=== PATIENT | male | born 1940 | race Caucasian/White ===

== ENCOUNTER 2020-11-04 22:54 | Emergency (ER) | payer OTHER, SELFPAY ==
[2020-11-04 22:55] VITALS: BP 114/56; PULSE 67; RESP 22; TEMP 36.4; O2SAT 96; BMI 27.6
--- NOTE | 2020-11-04 23:05 | RAD_ITS ---
STUDY: X-RAY CHEST REASON FOR EXAM: Male, 80 years old. cough TECHNIQUE: Single AP portable view of the chest. COMPARISON: None. FINDINGS: The lungs are clear and expanded. There is no demonstrated pleural abnormality. Normal size heart. Normal mediastinum and amauri. Normal visualized pulmonary arteries. Normal visualized aortic arch and descending thoracic aorta. Normal visualized thoracic spine. Normal visualized ribs, clavicles, and shoulders. There is no demonstrated abnormality of the visualized soft tissue structures of the upper abdomen. Moderate hiatal hernia. Calcified left upper lobe granuloma RAD/Chest 1 View (Portable) IMPRESSION: Normal x-ray examination of the chest. Electronically Signed: Geovanny Ann DO at 23:29 EDT Tel , Service support ,
--- NOTE | 2020-11-04 23:05 | EKG12_ITS ---
Test Reason : DYSRHYTHMIA Blood Pressure : / mmHG Vent. Rate : 069 BPM Atrial Rate : 069 BPM P-R Int : 222 ms QRS Dur : 086 ms QT Int : 406 ms P-R-T Axes : 019 009 102 degrees QTc Int : 435 ms Sinus rhythm with 1st degree A-V block with frequent Premature ventricular complexes Low voltage QRS Septal infarct , age undetermined Abnormal ECG Confirmed by RONY LANDEROS, NORMA ([id number]), commissioning editor GORDON MANSFIELD ([id number]) on 11/08/2020 10:05:37 AM Referred By: FAISAL Confirmed By:NORMA URIBE MD
--- NOTE | 2020-11-04 23:06 | EDS_ITS ---
HPI History of Present Illness Chief Complaint: Shortness of Breath Informant: patient and family Narrative Narrative: 80-year-old male presents the emergency department with cough and shortness of breath. Patient states he developed a cough last week and over the past couple days has had increased shortness of breath. Today he was unable to lie flat in his afternoon nap and at bedtime. He denies any fevers. He notes the sputum is yellow. He has a history of coronary artery disease having had a stent in the past about 20 years ago. He does not get his care here at the hospital. He states that he has not been hospitalized since his heart attack. [facility] Medical History (Updated 11/05/20 @ 00:[address] Marcelo Alves DO) Coronary artery disease Heart failure Home Medications amlodipine [Norvasc] 5 mg PO DAILY 11/04/20 [History Last Taken Unknown] aspirin 325 mg PO DAILY 11/04/20 [History Last Taken Unknown] atenolol 25 mg PO DAILY 11/04/20 [History Last Taken Unknown] isosorbide mononitrate 60 mg PO DAILY 11/04/20 [History Last Taken Unknown] simvastatin [Zocor] 40 mg PO DAILY 11/04/20 [History Last Taken Unknown] doxycycline monohydrate 100 mg PO BID #14 capsule 11/05/20 [Rx Last Taken Unknown] Allergy/AdvReac Type Severity Reaction Status Date / Time No Known Allergies Allergy Verified 11/04/20 22:55 Surgical History (Updated 11/04/20 @ 22:59 by Caitlyn Sousa) Stented coronary artery Social History (Updated 11/04/20 @ 23:[address] Marcelo Alves DO) Smoking Status: Never smoker substance use type: does not use ROS ROS ED Constitutional Constitutional ED: Denies chills or weight loss Eyes Eyes: Denies change in vision or diplopia ENT ENT ED: Denies ear pain, rhinorrhea or sore throat Cardiovascular Cardiovascular: Reports orthopnea; Denies chest pain, palpitations or racing heartbeat Respiratory/Chest Respiratory/Chest: Reports cough, dyspnea, dyspnea on exertion, orthopnea and sputum Gastrointestinal Gastrointestinal: Denies abdominal pain, diarrhea, nausea or vomiting Genitourinary Genitourinary ED: Denies dysuria, hematuria or urinary frequency Musculoskeletal Musculoskeletal: Denies arthralgias or myalgias Integumentary Denies abscess or rash Neurologic Neurologic: Denies headache(s) or weakness Psychiatric Psychiatric: Denies anxiety, depression, suicidal ideation or suicidal thoughts Endocrine Endocrinology: Denies polydipsia, polyphagia or polyuria Allergic/Immunologic Allergic/Immunologic ED: Denies mouth swelling, tongue swelling or urticaria EXAM Physical Exam Const Vital Signs: 11/04/20 22:55 11/04/20 22:59 11/05/20 00:19 Temperature 97.5 F L Temperature Source Temporal Pulse Rate 67 62 Respiratory Rate 22 H 34 H Respiratory Effort Short of Breath Respiratory Depth Respiratory Pattern Tachypnea Blood Pressure 114/56 L 115/72 Blood Pressure Mean 75 86 Pulse Ox 96 98 Oxygen Delivery Method Room Air Room Air 11/05/20 00:25 Temperature Temperature Source Pulse Rate 74 Respiratory Rate 20 H Respiratory Effort Short of Breath Respiratory Depth Shallow Respiratory Pattern Normal Blood Pressure Blood Pressure Mean Pulse Ox 97 Oxygen Delivery Method Room Air Positive well nourished and well developed General Appearance ED: well developed HEENT Reports normocephalic, head/scalp atraumatic and moist mucous membranes Eyes PERRL and EOMs intact bilaterally Neck no lymphadenopathy, supple and no JVD Resp normal respiratory effort and clear to auscultation bilaterally Cardio regular rate, regular rhythm and no murmurs GI normal to inspection, nondistended, normoactive bowel sounds and non-tender Palpation: soft Back/Spine no CVA tenderness and normal ROM Extremity normal to inspection General Extremety ED: Negative for edema General Extremity: Negative for edema Neuro oriented x3 and CN's II-XII intact bilaterally Sensorium / Orientation: alert Motor Exam: strength 5/5 throughout Psych mental status grossly normal Mood & Affect: Negative for depressed or tearful Skin no rashes or lesions noted and no wounds MDM MDM MDM Narrative Medical decision making narrative: My interpretation of the chest x-ray is right lower lobe infiltrate. Patient's white count is 5.3. Naturopathic 26.1. Troponin is 7.8. Lactic acid is normal. Covid is negative. Urinalysis nega tive. Patient ambulated in the emergency department that any hypoxemia. I gave him a breathing treatment and now there are clear rhonchi on the right base. Patient will be treated with doxycycline and albuterol MDI. Return if worsening Lab Data Attestation: I reviewed the patient's lab results. Labs: Laboratory Results - last 24 hr 08/05/21 08/05/21 08/05/21 22:57 22:57 22:57 WBC 5.3 RBC 4.74 Hgb 13.6 Hct 41.4 MCV 87.3 MCH 28.7 MCHC 32.9 RDW Std Deviation 46.6 H RDW Coeff of Deb 14.5 Plt Count 220 MPV 10.5 Immature Gran % (Auto) 0.200 Neut % (Auto) 54.4 Lymph % (Auto) 33.0 [place] % (Auto) 9.9 Eos % (Auto) 2.3 Baso % (Auto) 0.2 Absolute Neuts (auto) 2.9 Absolute Lymphs (auto) 1.73 Nucleated RBC % 0 Sodium 140 Potassium 3.8 Chloride 106 Carbon Dioxide 25.0 Anion Gap 9 BUN 18 Creatinine 0.99 Estim Creat Clear Calc 62.47 Est GFR (MDRD) Af Amer 94 Est GFR (MDRD) Non-Af 77 BUN/Creatinine Ratio 18.2 Glucose 104 Lactic Acid Calcium 8.1 L Total Bilirubin 0.60 AST 35 ALT 29 Alkaline Phosphatase 88 Troponin I High Sens 7.8 B-Natriuretic Peptide 26.1 Total Protein 7.3 Albumin 3.1 L Globulin 4.2 Albumin/Globulin Ratio 0.7 L Urine Color Urine Clarity Urine pH Ur Specific Lorenzo Urine Protein Urine Glucose (UA) Urine Ketones Urine Occult Blood Urine Nitrite Urine Bilirubin Urine Urobilinogen Ur Leukocyte Esterase Urine RBC Urine WBC Ur Squamous Epith Cells Urine Bacteria Urine Mucus 11/04/20 11/04/20 23:42 23:45 WBC RBC Hgb Hct MCV MCH MCHC RDW Std Deviation RDW Coeff of Deb Plt Count MPV Immature Gran % (Auto) Neut % (Auto) Lymph % (Auto) [place] % (Auto) Eos % (Auto) Baso % (Auto) Absolute Neuts (auto) Absolute Lymphs (auto) Nucleated RBC % Sodium Potassium Chloride Carbon Dioxide Anion Gap BUN Creatinine Estim Creat Clear Calc Est GFR (MDRD) Af Amer Est GFR (MDRD) Non-Af BUN/Creatinine Ratio Glucose Lactic Acid 1.6 Calcium Total Bilirubin AST ALT Alkaline Phosphatase Troponin I High Sens B-Natriuretic Peptide Total Protein Albumin Globulin Albumin/Globulin Ratio Urine Color Yellow Urine Clarity Sl. Cloudy Urine pH 5.0 Ur Specific Lorenzo 1.020 Urine Protein 15 H Urine Glucose (UA) Normal Urine Ketones Negative Urine Occult Blood Negative Urine Nitrite Negative Urine Bilirubin Negative Urine Urobilinogen 1 H Ur Leukocyte Esterase 25 H Urine RBC 0 SEEN Urine WBC 0 SEEN Ur Squamous Epith Cells 0 SEEN Urine Bacteria RARE Urine Mucus 0 SEEN Radiography Diagnostic Testing: Radiology Impression Chest X-Ray 11/04/20 23:05 IMPRESSION: Normal x-ray examination of the chest. Electronically Signed: Geovanny Ann DO at 23:29 EDT Tel , Service support , EKG Initial EKG: Attestation: I personally reviewed and interpreted this EKG as follows: Comments: EKG appears to have a sinus rhythm with first-degree AV block with frequent PVCs. Discharge Plan Triage Chief Complaint: Shortness of Breath ED Provider: Marcelo Alves Dx/Rx/DC Orders Clinical Impression: Pneumonia Instructions: ED Pneumonia (Adult) Prescriptions: New doxycycline monohydrate 100 MG capsule 100 mg PO BID Qty: 14 RF: 0 No Action aspirin 325 mg Tablet 325 mg PO DAILY RF: 0 atenolol 25 mg Tablet 25 mg PO DAILY RF: 0 amlodipine [Norvasc] 5 mg Tablet 5 mg PO DAILY RF: 0 simvastatin [Zocor] 40 mg Tablet 40 mg PO DAILY RF: 0 isosorbide mononitrate 60 mg Tablet Extended Release 24 Hr 60 mg PO DAILY RF: 0 Primary Care Provider: Blake Prieto Referrals: Blake Prieto DO [Primary Care Provider] - 1 Week Activity Restrictions/Additional Instructions: The inhaler is 2 - 4 puffs every 4 hours Disposition Disposition: Home, Self Care
[2020-11-04 23:24] LABS: Absolute Lymphocyte Count 1.73 X10^3/uL (0.83-4.51); Absolute Neutrophil Count 2.9 X10^3/uL (2.0-7.7); Basophil# 0.01 X10^3/uL; Basophil% 0.2 % (0-1); Eosinophil# 0.12 X10^3/uL; Eosinophils% 2.3 % (0-5); Hematocrit 41.4 % (40-54); Hemoglobin 13.6 g/dL (13.0-16.5); Lymphocyte # 1.73 X10^3/ul (0.83-4.51); Mean Corp Hgb Conc 32.9 g/dL (32-36); Mean Corpuscular Hgb 28.7 pg (27.0-32.0); Mean Corpuscular Volume 87.3 fL (80-94); Mean Platelet Vol. 10.5 fl (6.2-12.0); Monocyte# 0.52 X10^3/uL; Monocyte% 9.9 % (0-10); NRBC Flagged by Analyzer 0 % (0-5); Neutrophil # 2.86 X10^3/uL (2.7-7.7); Neutrophil % 54.4 % (47-70); POSITIVE MORPHOLOGY YES; Platelet Count 220 K/mm3 (150-450); RBC Distribution Width CV 14.5 % (11.6-14.6); RBC Distribution Width SD 46.6 fl (35.1-43.9); Red Blood Count 4.74 M/mm3 (4.6-6.2); White Blood Count 5.3 K/mm3 (4.4-11.0)
[2020-11-04 23:36] LABS: ALB/GLOB Ratio 0.7 RATIO (0.9-2.4); AST(SGOT) 35 U/L (15-37); Alanine Aminotransfer ALT/SGPT 29 U/L (16-61); Albumin, Serum 3.1 g/dL (3.2-5.0); Alkaline Phosphatase 88 U/L (45-117); Anion Gap 9 (5-15); BUN 18 mg/dL (7-18); BUN/Creat Ratio 18.2 RATIO (10-20); Calcium,Total 8.1 mg/dL (8.5-10.1); Chloride 106 mmol/L (98-107); Creatinine, Serum 0.99 mg/dL (0.70-1.30); EST Glomerular Filtration Rate 77 mL/min (>60); Est Glom Filt Rate - Afr Amer 94 mL/min (>60); Estimated Creatinine Clearance 62.47 ml/min; Globulin 4.2 g/dL (2.2-4.2); Glucose 104 mg/dL (74-106); Potassium 3.8 mmol/L (3.5-5.1); Protein, Total 7.3 g/dL (6.4-8.2); Sodium Level 140 mmol/L (136-145); Troponin-I HS 7.8 pg/mL (3.0-78.5)
[2020-11-04 23:48] LABS: Mucous, Urine 0 SEEN /hpf (<or=2+); Red Blood Cells-Urine 0 SEEN /hpf (0-5); Squamous Epithelial Cells - UA 0 SEEN /hpf (0-5); White Blood Cells 0 SEEN /hpf (0-5)
[2020-11-04 23:53] LABS: Color, Urine Yellow (Yellow); Glucose, Dipstick Normal (Normal); Ketone-Dipstick Negative (Negative); Leukocyte Esterase-Dipstick 25 /ul (Negative); Nitrite-Dipstick Negative (Negative); Occult Blood-Urine Negative /ul (Negative); Protein-Dipstick 15 mg/dl (Negative); Urine Bilirubin Dipstick Negative (Negative); Urine Clarity Sl. Cloudy (Clear); Urine Urobilinogen 1 mg/dl (Normal)
[2020-11-04 23:57] LABS: Differential Indicated SCAN CRITERIA MET
[2020-11-05 00:02] LABS: Bacteria RARE /hpf (None Seen)
[2020-11-05 00:05] LABS: BNP,B-Type NATRIURETIC PEPTIDE 26.1 pg/mL (0-100)
[2020-11-05 00:13] LABS: Lactic Acid 1.6 mmol/L (0.4-1.9)
[2020-11-05 00:19] VITALS: BP 115/72; PULSE 62; RESP 34; O2SAT 98
[2020-11-05 00:25] VITALS: PULSE 74; RESP 20; O2SAT 97
[2020-11-05] MEDS: Ipratropium/Albuterol Sulfate 3 ML AMPUL.NEB INHALATION (00:25)
[2020-11-05 00:45] VITALS: O2SAT 98
[2020-11-05 01:07] VITALS: BP 141/77; PULSE 70; RESP 21; O2SAT 96
[2020-11-05] MEDS: Doxycycline 100 MG CAPSULE PO (01:09)
[2020-11-05] MEDS: INHALER, ASSIST DEVICES 1 EACH SPACER INHALATION (01:16)
== END 2020-11-05 01:23 | disposition home or self-care (01) ==
PROVIDERS: Emergency Provider Emergency Medicine; PCP Family Medicine
DX: J18.9 Pneumonia, unspecified organism (principal); I25.10 Atherosclerotic heart disease of native coronary artery without angina pectoris; I50.9 Heart failure, unspecified; I25.2 Old myocardial infarction; Z79.82 Long term (current) use of aspirin; Z79.899 Other long term (current) drug therapy; Z95.5 Presence of coronary angioplasty implant and graft
CPT/HCPCS: 71045; 80053; 81001; 83605; 83880; 84484; 85025; 87040; 87426; 93005; 94640; 99251; 99283; A4216; G0463

== ENCOUNTER 2024-06-25 09:28 | Inpatient (IN) | payer SELFPAY ==
[2024-06-25] VITALS (10 sets, daily range): BP systolic 87–167; BP diastolic 51–141; PULSE 68–97; RESP 16–30; TEMP 36.4–37.7; O2SAT 92–98; BMI 28.0; BMI 28.4
--- NOTE | 2024-06-25 09:44 | CT_ITS ---
PROCEDURE: CTA CHEST W/WO CONTRAST 06/25/2024 REASON FOR EXAM: ? PE VS PNEUMONIA TECHNIQUE: Pulmonary CT angiogram with contrast. Coronal and Sagittal reconstruction series were provided. CONTRAST: Isovue 370 VOLUME: 100mL. One or more dose reduction techniques were used (e.g., Automated exposure control, adjustment of the mA and/or kV according to patient size, use of iterative reconstruction technique). RADIATION DOSE SUMMARY: CTDlvol: 29.61 mGy DLP: 426.43 mGycm COMPARISON: Chest x-ray 11/04/2020 FINDINGS: An hiatal hernia is again noted. The visualized upper abdomen demonstrates no acute process. No evidence of pulmonary edema. Mild to moderate dependent atelectasis is present, most apparent at the lung bases. No pleural effusion or pneumothorax is seen. No evidence of pulmonary embolism. Moderate coronary artery calcification is noted. Mild aortic calcification is seen. No aneurysmal dilation is seen in visualized areas. Prominent degenerative changes are seen of the bilateral glenohumeral joints, with severe bilateral joint space narrowing. Degenerative changes of the spine are also noted. No acute osseous process is seen. CT/CTA Chest W/WO Contrast IMPRESSION: 1. No evidence of pulmonary embolism. 2. Hiatal hernia again seen. 3. Bibasilar and dependent atelectasis Reading Location: [id number]
[2024-06-25] MEDS: Acetaminophen 500 MG Tablet 1000 MG PO (09:54)
[2024-06-25] MEDS: 0.9% Normal Saline (1000mL) 1,000 ML 999 ML IV ×3 (09:54→12:13)
[2024-06-25 09:55] LABS: Absolute Lymphocyte Count 0.42 X10^3/uL (0.83-4.51); Absolute Neutrophil Count 9.6 X10^3/uL (2.0-7.7); Basophil# 0.02 X10^3/uL; Basophil% 0.2 % (0-1); Eosinophil# 0.03 X10^3/uL; Eosinophils% 0.3 % (0-5); Hemoglobin 11.7 g/dL (13.0-16.5); Lymphocyte # 0.42 X10^3/ul (0.83-4.51); Mean Corp Hgb Conc 33.4 g/dL (32-36); Mean Corpuscular Volume 86.6 fL (80-94); Mean Platelet Vol. 9.4 fl (6.2-12.0); Monocyte# 0.25 X10^3/uL; Monocyte% 2.4 % (0-10); NRBC Flagged by Analyzer 0 % (0-5); Neutrophil # 9.55 X10^3/uL (2.7-7.7); Neutrophil % 91.4 % (47-70); POSITIVE DIFFERENTIAL YES; Platelet Count 322 K/mm3 (150-450); RBC Distribution Width CV 15.5 % (11.6-14.6); RBC Distribution Width SD 49.1 fl (35.1-43.9); Red Blood Count 4.04 M/mm3 (4.6-6.2); White Blood Count 10.5 K/mm3 (4.4-11.0)
--- NOTE | 2024-06-25 10:00 | EDS_ITS ---
HPI History of Present Illness Chief Complaint: General Illness Informant: patient and family Narrative Narrative: Patient is an 84-year-old male with past ministry of hypertension coronary artery disease and hyperlipidemia. He had a left knee replacement 1 week ago for which he was discharged on the same day. He is currently on prophylactic Xarelto following the surgery. Granddaughter who stays with the patient states that he has been doing well but today had increased weakness and difficulty with ambulation and he developed a fever of 103 at home. Secondary to this there was concern for an infectious process and he was brought into the hospital for e valuation [facility] Medical History Tears of meniscus and ACL of left knee Osteoarthritis of left knee Left knee pain Coronary artery disease Heart failure Home Medications ?Medication ?Instructions ?Recorded ?Last Taken ?Type amlodipine 5 mg tablet (Norvasc) 5 mg PO DAILY 1 Unknown History aspirin 325 mg tablet 325 mg PO DAILY 11/04/20 Unk nown History simvastatin 40 mg tablet (Zocor) 40 mg PO DAILY Unknown History atenolol 25 mg tablet 25 mg PO DAILY 02/14/24 Unkn own History furosemide 40 mg tablet (Lasix) 40 mg PO QAM 02/14/24 Unknown History isosorbide mononitrate 60 mg 60 mg PO QAM 02/14/24 Unk nown History tablet,extended release 24 hr Allergy/AdvReac Type Severity Reaction Status Date / Time No Known Allergies Allergy Verified 02/14/24 14:55 Surgical History (Updated 06/25/24 @ 09:36 by Emily Bee) Total knee replacement status Stented coronary artery Social History (Updated 02/14/24 @ 15:02 by Ethel Archibald MA) household members: spouse Smoking Status: Never smoker substance use type: does not use ROS ROS ED Constitutional Constitutional ED: Reports fever(s); Denies chills Eyes Eyes: Denies change in vision ENT ENT ED: Denies rhinorrhea or sore throat Cardiovascular Cardiovascular: Denies chest pain Respiratory/Chest Respiratory/Chest: Denies cough or dyspnea Gastrointestinal Gastrointestinal: Denies abdominal pain, diarrhea, nausea or vomiting Genitourinary Genitourinary ED: Reports dysuria Musculoskeletal Musculoskeletal: Reports other Details: Positive left knee pain status post surgery ; Denies back pain Integumentary Reports other Details: Postsurgical changes left leg Neurologic Neurologic: Reports weakness; Denies headache(s) Hematologic/Lymphatic Hematologic/Lymphatic: Reports easy bleeding and easy bruising Allergic/Immunologic Allergic/Immunologic ED: Denies mouth swelling or tongue swelling EXAM Physical Exam Const Vital Signs: 06/25/24 09:30 06/25/24 09:41 Temperature 99.9 F H Temperature Source Axillary Pulse Rate 95 Respiratory Rate 30 H Respiratory Effort Normal Respiratory Pattern Normal Blood Pressure 167/141 H Blood Pressure Mean 149 Pulse Ox 94 Oxygen Delivery Method Room Air Positive well nourished and well developed General Appearance ED: well developed HEENT Reports dry mucous membranes HEENT Narrative: No tongue or lip swelling no oral lesions no airway edema or compromise No signs of infection noted in the posterior pharynx Mucous membranes are dry and tacky Mouth ED: Yes dry mucous membranes Mouth: dry mucous membranes Eyes PERRL and EOMs intact bilaterally General Eye ED: Negative for scleral icterus Neck supple and no JVD Neck Narrative: No nuchal rigidity or meningeal signs Resp normal respiratory effort and clear to auscultation bilaterally Resp Narrative: Breath sounds are diminished throughout but overall clear to auscultation No nasal flaring retractions or accessory muscle use Cardio regular rate and regular rhythm Rate: other Other Details: Heart is regular rate and rhythm Radial and carotid pulses are equal and symmetric GI non-tender, non-distended and no masses GI Narrative: Abdomen is soft nontender and nondistended with hypoactive bowel sounds No voluntary guarding or rigidity or pulsatile mass Auscultation: hypoactive bowel sounds Palpation: soft Extremity Extremity Narrative: Surgical scar to the anterior aspect of the left knee consistent with recent total knee replacement. Faint surrounding erythema and warmth and soft tissue swelling is noted this tracks from the knee down through the left richards/foot. Active and passive range of motion is decreased secondary to pain. Negative Homans' sign. Compartments are soft and compressible going against compartment syndrome. No lymphangitic streaking or purulent discharge noted. No crepitance palpated. Remainder of the exam is normal Neuro oriented x3, CN's II-XII intact bilaterally and no sensory deficits noted Sensorium / Orientation: alert Psych Psych Narrative: Patient has a depressed/flat affect Skin Skin Narrative: Soft tissue changes to the left leg as documented above consistent with postoperative findings; no obvious secondary infection changes noted MDM MDM Lab Data Labs: Laboratory Results - last 24 hr 06/25/24 09:50 WBC 10.5 RBC 4.04 L Hgb 11.7 L Hct 35.0 L MCV 86.6 MCH 29.0 MCHC 33.4 RDW Std Deviation 49.1 H RDW Coeff of Deb 15.5 H Plt Count 322 MPV 9.4 Immature Gran % (Auto) 1.700 H Neut % (Auto) 91.4 H Lymph % (Auto) 4.0 L [place] % (Auto) 2.4 Eos % (Auto) 0.3 Baso % (Auto) 0.2 Absolute Neuts (auto) 9.6 H Absolute Lymphs (auto) 0.42 L Nucleated RBC % 0 Discharge Plan Triage Chief Complaint: General Illness ED Provider: Adam Pepe Dx/Rx/DC Orders Prescriptions: No Action furosemide [Lasix] 40 mg tablet 40 mg PO QAM isosorbide mononitrate 60 mg tablet extended release 24 hr 60 mg PO QAM aspirin 325 mg Tablet 325 mg PO DAILY amlodipine [Norvasc] 5 mg Tablet 5 mg PO DAILY simvastatin [Zocor] 40 mg Tablet 40 mg PO DAILY atenolol 25 mg tablet 25 mg PO DAILY Rx Instructions: 1/2 pill daily Primary Care Provider: Blake Prieto Referrals: Blake Prieto DO [Primary Care Provider] - Print Language: Bolivian
--- NOTE | 2024-06-25 10:00 | EX.ED.DYSGE1 ---
HPI History of Present Illness Chief Complaint: General Illness Informant: patient and family Narrative Narrative: Patient is an 84-year-old male with past ministry of hypertension coronary artery disease and hyperlipidemia. He had a left knee replacement 1 week ago for which he was discharged on the same day. He is currently on prophylactic Xarelto following the surgery. Granddaughter who stays with the patient states that he has been doing well but today had increased weakness and difficulty with ambulation and he developed a fever of 103 at home. Secondary to this there was concern for an infectious process and he was brought into the hospital for evaluation [facility] Medical History Tears of meniscus and ACL of left knee Osteoarthritis of left knee Left knee pain Coronary artery disease Heart failure Home Medications ?Medication ?Instructions ?Recorded ?Last Taken ?Type simvastatin 40 mg tablet (Zocor) 40 mg PO DAILY 11/04/20 06/24/24 History atenolol 25 mg tablet 12.5 mg PO DAILY 02/14/24 06/24/24 History furosemide 40 mg tablet (Lasix) 40 mg PO QAM 02/14/24 06/24/24 History isosorbide mononitrate 60 mg 60 mg PO QAM 02/14/24 06/24/24 History tablet,extended release 24 hr potassium chloride 20 mEq 20 meq PO DAILY 06/25/24 06/24/24 History tablet,extended release rivaroxaban 10 mg tablet 10 mg PO DAILY 06/25/24 06/24/24 History tamsulosin 0.4 mg capsule (Flomax) 0.4 mg PO DAILY 06/25/24 06/24/24 History Allergy/AdvReac Type Severity Reaction Status Date / Time No Known Allergies Allergy Verified 02/14/24 14:55 Surgical History (Updated 06/25/24 @ 09:36 by Emily Bee) Total knee replacement status Stented coronary artery Social History (Updated 02/14/24 @ 15:02 by Ethel Archibald MA) household members: spouse Smoking Status: Never smoker substance use type: does not use ROS ROS ED Constitutional Constitutional ED: Reports fever(s); Denies chills Eyes Eyes: Denies change in vision ENT ENT ED: Denies rhinorrhea or sore throat Cardiovascular Cardiovascular: Denies chest pain Respiratory/Chest Respiratory/Chest: Denies cough or dyspnea Gastrointestinal Gastrointestinal: Denies abdominal pain, diarrhea, nausea or vomiting Genitourinary Genitourinary ED: Reports dysuria Musculoskeletal Musculoskeletal: Reports other Details: Positive left knee pain status post surgery ; Denies back pain Integumentary Reports other Details: Postsurgical changes left leg Neurologic Neurologic: Reports weakness; Denies headache(s) Hematologic/Lymphatic Hematologic/Lymphatic: Reports easy bleeding and easy bruising Allergic/Immunologic Allergic/Immunologic ED: Denies mouth swelling or tongue swelling EXAM Physical Exam Const Vital Signs: 06/25/24 09:30 06/25/24 09:41 06/25/24 10:56 Temperature 99.9 F H 98.2 F Temperature Source Axillary Oral Pulse Rate 95 97 Respiratory Rate 30 H 23 H Respiratory Effort Normal Respiratory Pattern Normal Blood Pressure 167/141 H 87/61 L Blood Pressure Mean 149 69 Pulse Ox 94 94 Oxygen Delivery Method Room Air Room Air 06/25/24 11:45 06/25/24 12:00 06/25/24 12:33 Temperature 98.2 F 98.6 F Temperature Source Oral Pulse Rate 97 97 88 Respiratory Rate 22 H 20 H 25 H Respiratory Effort Respiratory Pattern Blood Pressure 93/58 L 87/51 L 99/63 Blood Pressure Mean 69 63 75 Pulse Ox 92 97 95 Oxygen Delivery Method Room Air Room Air Positive well nourished and well developed General Appearance ED: well developed HEENT Reports dry mucous membranes HEENT Narrative: No tongue or lip swelling no oral lesions no airway edema or compromise No signs of infection noted in the posterior pharynx Mucous membranes are dry and tacky Mouth ED: Yes dry mucous membranes Mouth: dry mucous membranes Eyes PERRL and EOMs intact bilaterally General Eye ED: Negative for scleral icterus Neck supple and no JVD Neck Narrative: No nuchal rigidity or meningeal signs Resp normal respiratory effort and clear to auscultation bilaterally Resp Narrative: Breath sounds are diminished throughout but overall clear to auscultation No nasal flaring retractions or accessory muscle use Cardio regular rate and regular rhythm Rate: other Other Details: Heart is regular rate and rhythm Radial and carotid pulses are equal and symmetric GI non-tender, non-distended and no masses GI Narrative: Abdomen is soft nontender and nondistended with hypoactive bowel sounds No voluntary guarding or rigidity or pulsatile mass Auscultation: hypoactive bowel sounds Palpation: soft Extremity Extremity Narrative: Surgical scar to the anterior aspect of the left knee consistent with recent total knee replacement. Faint surrounding erythema and warmth and soft tissue swelling is noted this tracks from the knee down through the left richards/foot. Active and passive range of motion is decreased secondary to pain. Negative Homans' sign. Compartments are soft and compressible going against compartment syndrome. No lymphangitic streaking or purulent discharge noted. No crepitance palpated. Remainder of the exam is normal Neuro oriented x3, CN's II-XII intact bilaterally and no sensory deficits noted Sensorium / Orientation: alert Psych Psych Narrative: Patient has a depressed/flat affect Skin Skin Narrative: Soft tissue changes to the left leg as documented above consistent with postoperative findings; no obvious secondary infection changes noted MDM MDM MDM Narrative Medical decision making narrative: Patient arrived to the ER with a low-grade fever of 99.9 and was hypertensive at approximate 170/140. Family reported a fever of 103 at home this morning and states he did not have his morning blood pressure medication. With his recent knee surgery and fever there is concern for pneumonia versus pulmonary embolus versus UTI versus postoperative infection. Secondary to this basic blood work was obtained with lactic acid procalcitonin blood culture and urine culture as there is concern for sepsis. As the patient's blood pressure is elevated and he did not take his morning medications I did give him a dose of 10 mg IV Lopressor. He was also given Tylenol secondary to the reported fever at home and low-grade temperature upon arrival. As there is concern for potential pulmonary embolus or pneumonia based on his recent surgery a CTA was obtained which revealed no acute PE dissection or pneumonia. Patient could have a viral infection such as COVID influenza or RSV. However viral swab was negative. With a catheterization following the surgery he has increased risk for UTI. Urine sample was obtained in the ER and is positive with nitrites bacteria and no skin contamination. Prior to the urine sample resulting the patient did drop his blood pressure and it was unsure if this was related to the IV labetalol or potentially development of sepsis so he was started on vancomycin and Zosyn. He was given 30 mL/kg fluid bolus which results to approximately 3 L. With administration of IV fluid the patient's blood pressure improved. However with his fever of 103 at home high procalcitonin value and increased weakness there is concern that his infection will not respond to just oral antibiotics. Therefore the case was discussed with the hospitalist who agrees to accept the patient for admission. We discussed potential ICU placement but as he does not have signs of endorgan damage and his lactate is not elevated he feels placement should be in the PCU at this time History & Record Review Discussion w/independent historian: Patient and Family Lab Data Attestation: I reviewed the patient's lab results. Labs: Laboratory Results - last 24 hr 06/25/24 06/25/24 09:50 10:54 WBC 10.5 RBC 4.04 L Hgb 11.7 L Hct 35.0 L MCV 86.6 MCH 29.0 MCHC 33.4 RDW Std Deviation 49.1 H RDW Coeff of Deb 15.5 H Plt Count 322 MPV 9.4 Immature Gran % (Auto) 1.700 H Neut % (Auto) 91.4 H Lymph % (Auto) 4.0 L [place] % (Auto) 2.4 Eos % (Auto) 0.3 Baso % (Auto) 0.2 Absolute Neuts (auto) 9.6 H Absolute Lymphs (auto) 0.42 L Nucleated RBC % 0 PT 16.5 H INR 1.3 APTT 32.0 Sodium 133 Potassium 3.6 Chloride 102 Carbon Dioxide 21.4 Anion Gap 10 BUN 19 Creatinine 0.98 Estim Creat Clear Calc 64.08 Est GFR (MDRD) Non-Af 76 BUN/Creatinine Ratio 19.0 Glucose 143 H Lactic Acid 1.5 Calcium 8.3 Procalcitonin 7.48 H Urine Color Yellow Urine Clarity Sl. Cloudy Urine pH 5.0 Ur Specific [place] 1.015 Urine Protein 30 H Urine Glucose (UA) Normal Urine Ketones 5 H Urine Occult Blood 25 H Urine Nitrite Positive H Urine Bilirubin Negative Urine Urobilinogen 1 H Ur Leukocyte Esterase 500 H Urine RBC 0-5 SEEN Urine WBC 10-25 SEEN Ur Squamous Epith Cells 0 SEEN Urine Bacteria 3+ Urine Mucus 0 SEEN Radiography Diagnostic Testing: Clinical Impression(s) from Imaging Studies Chest CTA 06/25/24 09:44 IMPRESSION: 1. No evidence of pulmonary embolism. 2. Hiatal hernia again seen. 3. Bibasilar and dependent atelectasis Reading Location: [id number] Management Discussion w/another healthcare provider: Hospitalist Discharge Plan Triage Chief Complaint: General Illness ED Provider: Adam Pepe Dx/Rx/DC Orders Clinical Impression: UTI (urinary tract infection), CAD (coronary artery disease), Congestive heart failure (CHF) Prescriptions: No Action furosemide [Lasix] 40 mg tablet 40 mg PO QAM isosorbide mononitrate 60 mg tablet extended release 24 hr 60 mg PO QAM simvastatin [Zocor] 40 mg Tablet 40 mg PO DAILY atenolol 25 mg tablet 12.5 mg PO DAILY Rx Instructions: 1/2 pill daily tamsulosin [Flomax] 0.4 mg capsule 0.4 mg PO DAILY potassium chloride 20 mEq tablet extended release 20 meq PO DAILY rivaroxaban 10 mg tablet 10 mg PO DAILY Primary Care Provider: Blake Prieto Referrals: Blake Prieto DO [Primary Care Provider] - Print Language: Romansh Disposition Disposition: Acute Care Hospital [facility]
[2024-06-25 10:07] LABS: International Normalized Ratio 1.3; Prothrombin Time (Protime)PT. 16.5 SECONDS (11.7-14.9)
[2024-06-25 10:47] LABS: Anion Gap 10 (5-15); BUN 19 mg/dL (4-19); Calcium,Total 8.3 mg/dL (7.6-11.0); Carbon Dioxide 21.4 mmol/L (21.0-32.0); Chloride 102 mmol/L (98-108); Creatinine, Serum 0.98 mg/dL (0.70-1.20); EST Glomerular Filtration Rate 76 (>60); Estimated Creatinine Clearance 64.08 ml/min (50-250); Glucose 143 mg/dL (70-99); Lactic Acid 1.5 mmol/L (0.0-2.0); Potassium 3.6 mmol/L (3.3-5.1); Sodium Level 133 mmol/L (133-145)
[2024-06-25 10:53] LABS: Procalcitonin 7.48 ng/mL (<=0.10)
[2024-06-25 10:57] LABS: Mucous, Urine 0 SEEN /hpf (<or=2+); Squamous Epithelial Cells - UA 0 SEEN /hpf (0-5)
[2024-06-25] MEDS: Piperacil/Tazobactam 3.375 GM in 0.9% Normal Saline (50mL MB+) 50 ML IV (11:21)
[2024-06-25 11:57] LABS: Color, Urine Yellow (Yellow); Glucose, Dipstick Normal (Normal); Ketone-Dipstick 5 mg/dl (Negative); Leukocyte Esterase-Dipstick 500 /ul (Negative); Nitrite-Dipstick Positive (Negative); Occult Blood-Urine 25 /ul (Negative); Protein-Dipstick 30 mg/dl (Negative); Specific Gravity, Urine 1.015 (1.002-1.030); Urine Bilirubin Dipstick Negative (Negative); Urine Clarity Sl. Cloudy (Clear); Urine Urobilinogen 1 mg/dl (Normal)
[2024-06-25] MEDS: Vancomycin HCl 1,250 MG in 0.9% Normal Saline (250mL Bag) 250 ML 167 MG IV (12:13)
[2024-06-25 12:19] LABS: Bacteria 3+ /hpf (None Seen); White Blood Cells 10-25 SEEN /hpf (0-5)
[2024-06-25 12:20] LABS: Red Blood Cells-Urine 0-5 SEEN /hpf (0-5)
[2024-06-25] MEDS: 0.9% Normal Saline (1000mL) 1,000 ML 100 ML IV (14:33)
[2024-06-25] MEDS: Ceftriaxone 1 GM/50 ML BAG IV (14:33)
--- NOTE | 2024-06-25 15:33 | PCM.HP.STD ---
HPI - General General Date of Admission: 06/25/24 HPI Narrative BURAK GILES, is a 84 M who presents to the hospital with some confusion at home and found to have a UTI. No signs of sepsis at this time with endorgan damage though family reports that he had a temperature to 103 at home while here he has been afebrile. No leukocytosis but urine is positive nitrites with 500 leukocyte esterase and 3+ bacteria. He states that he had difficulty urinating after his knee surgery about a week ago so his primary care doctor inserted a Pritchett in the office and took it out on Sunday. Since that time he had felt well until this morning when his granddaughter, who is a nurse, saw him and felt that he was a lot more confused and so request that he come to the hospital. He did have a slight episode of hypotension this was secondary to labetalol given in the ER in the setting of his infection. He still has noe in his left knee from surgery which does not appear significantly infected, there is some minor redness around the staple line and his orthopedic surgeon has been notified that he is here in the hospital. Since fluids in the ER and antibiotics he states that he is feeling much better and his son who is at bedside also says that he looks better today. [facility] Medical History Tears of meniscus and ACL of left knee Osteoarthritis of left knee Left knee pain Coronary artery disease Heart failure Home Medications ?Medication ?Instructions ?Recorded ?Last Taken ?Type simvastatin 40 mg tablet (Zocor) 40 mg PO DAILY 11/04/20 06/24/24 History atenolol 25 mg tablet 12.5 mg PO DAILY 02/14/24 06/24/24 History furosemide 40 mg tablet (Lasix) 40 mg PO QAM 02/14/24 06/24/24 History isosorbide mononitrate 60 mg 60 mg PO QAM 02/14/24 06/24/24 History tablet,extended release 24 hr potassium chloride 20 mEq 20 meq PO DAILY 06/25/24 06/24/24 History tablet,extended release rivaroxaban 10 mg tablet 10 mg PO DAILY 06/25/24 06/24/24 History tamsulosin 0.4 mg capsule (Flomax) 0.4 mg PO DAILY 06/25/24 06/24/24 History Allergy/AdvReac Type Severity Reaction Status Date / Time No Known Allergies Allergy Verified 02/14/24 14:55 Family History (Updated 06/25/24 @ 15:[address] Tenzin Driver MD) Other Heart disease Surgical History (Updated 06/25/24 @ 09:36 by Emily Bee) Total knee replacement status Stented coronary artery Social History (Updated 02/14/24 @ 15:02 by Ethel Archibald MA) household members: spouse Smoking Status: Never smoker substance use type: does not use ROS Constitutional Constitutional: Reports fatigue, fever(s) and weakness; Denies chills or malaise Eyes Eyes: Denies blurry vision ENT HEENT: Denies headache(s) or nasal discharge Cardiovascular Cardiovascular: Denies chest pain, dyspnea on exertion or syncope Respiratory/Chest Respiratory/Chest: Denies cough, shortness of breath at rest or shortness of breath with exertion Gastrointestinal Gastrointestinal: Denies constipation, diarrhea, nausea or vomiting Genitourinary Genitourinary: Reports dysuria Neurologic Neurologic: Denies focal weakness, numbness or tremor(s) Psychiatric Psychiatric: Denies anxiety or depression Vital Signs Vital Signs Vital Signs: 06/25/24 09:30 06/25/24 09:41 06/25/24 10:56 Temperature 99.9 F H 98.2 F Temperature Source Axillary Oral Pulse Rate 95 97 Respiratory Rate 30 H 23 H Respiratory Effort Normal Respiratory Pattern Normal Blood Pressure 167/141 H 87/61 L Blood Pressure Mean 149 69 Pulse Ox 94 94 Oxygen Delivery Method Room Air Room Air 06/25/24 11:45 06/25/24 12:00 06/25/24 12:33 Temperature 98.2 F 98.6 F Temperature Source Oral Pulse Rate 97 97 88 Respiratory Rate 22 H 20 H 25 H Respiratory Effort Respiratory Pattern Blood Pressure 93/58 L 87/51 L 99/63 Blood Pressure Mean 69 63 75 Pulse Ox 92 97 95 Oxygen Delivery Method Room Air Room Air 06/25/24 12:58 06/25/24 14:00 06/25/24 14:00 Temperature 98.6 F 97.6 F L Temperature Source Axillary Oral Pulse Rate 89 85 Respiratory Rate 19 H 18 Respiratory Effort Respiratory Pattern Blood Pressure 97/57 L 94/59 L Blood Pressure Mean 70 70 Pulse Ox 95 95 Oxygen Delivery Method Room Air Room Air Room Air 06/25/24 15:30 Temperature 97.6 F L Temperature Source Oral Pulse Rate 85 Respiratory Rate 18 Respiratory Effort Respiratory Pattern Blood Pressure 94/59 L Blood Pressure Mean 70 Pulse Ox 95 Oxygen Delivery Method Room Air Weight Weight: 192 lb 10.944 oz Body Mass Index (BMI) 28.4 Physical Exam Narrative General: Alert, Oriented x3, Cooperative, No apparent distress HEENT: Atraumatic, PERRLA, EOMI, Normocephalic Oral: Dry mucosa Neck: Supple, No JVD Lungs: Diminished, Normal air movement, No rhonchi, No wheeze, No rales Cardiovascular: Regular rate, Regular Rhythm, Normal S1, Normal S2, No murmurs Abdomen: Soft, Non Tender, Non-Distended, No Hepato-splenomegaly Extremities: Edema around his left knee from surgery, Capillary Refill Less than 3 Seconds Skin: Left knee noe with mild katharine-incisional erythema Musculoskeletal: Mild tenderness to palpation of his left knee postsurgery Neurological: No focal neurological deficits, Motor Exam 5/5 strength throughout, Sensory exam intact to light touch and pain Psych/Mental Status: Normal Affect, Appropriate Results Lab / Micro Data 06/25/24 09:50 06/25/24 09:50 Labs: Laboratory Results - last 24 hr 06/25/24 09:50: WBC 10.5, RBC 4.04 L, Hgb 11.7 L, Hct 35.0 L, MCV 86.6, MCH 29.0, MCHC 33.4, RDW Std Deviation 49.1 H, RDW Coeff of Deb 15.5 H, Plt Count 322, MPV 9.4, Immature Gran % (Auto) 1.700 H, Neut % (Auto) 91.4 H, Lymph % (Auto) 4.0 L, [place] % (Auto) 2.4, Eos % (Auto) 0.3, Baso % (Auto) 0.2, Absolute Neuts (auto) 9.6 H, Absolute Lymphs (auto) 0.42 L, Nucleated RBC % 0, PT 16.5 H, INR 1.3, APTT 32.0, Sodium 133, Potassium 3.6, Chloride 102, Carbon Dioxide 21.4, Anion Gap 10, BUN 19, Creatinine 0.98, Estim Creat Clear Calc 64.08, Est GFR (MDRD) Non-Af 76, BUN/Creatinine Ratio 19.0, Glucose 143 H, Lactic Acid 1.5, Calcium 8.3, Procalcitonin 7.48 H 06/25/24 10:54: Urine Color Yellow, Urine Clarity Sl. Cloudy, Urine pH 5.0, Ur Specific [place] 1.015, Urine Protein 30 H, Urine Glucose (UA) Normal, Urine Ketones 5 H, Urine Occult Blood 25 H, Urine Nitrite Positive H, Urine Bilirubin Negative, Urine Urobilinogen 1 H, Ur Leukocyte Esterase 500 H, Urine RBC 0-5 SEEN, Urine WBC 10-25 SEEN, Ur Squamous Epith Cells 0 SEEN, Urine Bacteria 3+, Urine Mucus 0 SEEN Micro: Microbiology 06/25/24 09:49 Mucosa - Nose SARS-CoV-2, Influenza & RSV (PCR) - Final Imaging Radiology Impression Chest CTA 06/25/24 09:44 IMPRESSION: 1. No evidence of pulmonary embolism. 2. Hiatal hernia again seen. 3. Bibasilar and dependent atelectasis Reading Location: [address] Assessment & Plan Assessment/Plan (1) UTI (urinary tract infection): PLAN: Plan 1. UTI without sepsis ? Urine culture and blood cultures are pending ? He does not have a leukocytosis ? She was given Zosyn and vancomycin in the ER, given the fact that his source is likely urine will transition to Rocephin ? Will monitor his knee closely and I did notify his orthopedic surgeon that he was here in the hospital, he did have a Pritchett for a few days which is likely the source of his infection ? Will continue with his postoperative prophylactic dose of Xarelto 2. Chronic CHF unknown type/essential HTN/HLD ? Will be gentle with IV fluids, hold his Lasix ? Given his blood pressure drop in the ER of the labetalol will hold his other blood pressure medications ? Will monitor and make adjustments as necessary 3. BPH with obstruction ? He recently had his Pritchett removed due to urinary retention ? Will hold his Flomax today given his lower blood pressures but can potentially restart it tomorrow DVT: Prophylactic Xarelto dosing 75 minutes was spent on direct patient care, including documentation as well as chart review and collaboration with colleagues Charges/Coding Visit Charges Inpatient E&M: 46730 Init Hosp L3
[2024-06-25 19:23] LABS: Erythrocyte Sedimentation Rate 59 mm/hr (0-20)
--- NOTE | 2024-06-25 19:23 | CONS.ORTHO ---
HPI Consult Data Date of Consult: 06/25/24 HPI Narrative HPI Narrative: BURAK GILES, is a 84 M who presents with a history of shaking fever and chills, confusion that started this morning. Patient had left knee replacement surgery June 17, 2024. He states he has done very well with his knee rehab. Patient reports remembering being able to urinate while at the hospital day of surgery. However that evening when he went home he was not able to urinate. He was seen by his primary care physician and reportedly a Pritchett catheter was placed. Pritchett catheter was left in place until Sunday, June 23, 2024. Patient states that he has been eating and drinking okay. He developed fevers and chills this morning. Denies increasing knee pain. Has been ambulating with a walker. Had been using Xarelto for DVT prevention he states his knee pain is currently 1 or 2 out of 10. He states while ambulating in the halls earlier today pain was 3 out of 10 in the knee. Continues to do his exercises of the knee. [facility] Medical History (Updated 06/25/24 @ 12:[address] Adam Pepe, ) Tears of meniscus and ACL of left knee Osteoarthritis of left knee Left knee pain Coronary artery disease Heart failure Home Medications ?Medication ?Instructions ?Recorded ?Last Taken ?Type simvastatin 40 mg tablet (Zocor) 40 mg PO DAILY 11/04/20 06/24/24 History atenolol 25 mg tablet 12.5 mg PO DAILY 02/14/24 06/24/24 History furosemide 40 mg tablet (Lasix) 40 mg PO QAM 02/14/24 06/24/24 History isosorbide mononitrate 60 mg 60 mg PO QAM 02/14/24 06/24/24 History tablet,extended release 24 hr potassium chloride 20 mEq 20 meq PO DAILY 06/25/24 06/24/24 History tablet,extended release rivaroxaban 10 mg tablet 10 mg PO DAILY 06/25/24 06/24/24 History tamsulosin 0.4 mg capsule (Flomax) 0.4 mg PO DAILY 06/25/24 06/24/24 History Allergy/AdvReac Type Severity Reaction Status Date / Time No Known Allergies Allergy Verified 02/14/24 14:55 Family History (Updated 06/25/24 @ 15:[address] Tnezin Driver MD) Other Heart disease Surgical History (Updated 06/25/24 @ 19:[address] Rogelio Richardson MD) Total knee replacement status Stented coronary artery Social History (Updated 02/14/24 @ 15:02 by Ethel Archibald MA) household members: spouse Smoking Status: Never smoker substance use type: does not use ROS ROS Narrative Patient denies any problems with his eyes ears nose or throat. No nausea or vomiting. He has had a poor appetite over the past 24 hours. He denies increasing knee pain. Has been urinating better. Vital Signs Vital Signs Vital Signs: 06/25/24 09:30 06/25/24 09:41 06/25/24 10:56 Temperature 99.9 F H 98.2 F Temperature Source Axillary Oral Pulse Rate 95 97 Respiratory Rate 30 H 23 H Respiratory Effort Normal Respiratory Pattern Normal Blood Pressure 167/141 H 87/61 L Blood Pressure Mean 149 69 Pulse Ox 94 94 Oxygen Delivery Method Room Air Room Air 06/25/24 11:45 06/25/24 12:00 06/25/24 12:33 Temperature 98.2 F 98.6 F Temperature Source Oral Pulse Rate 97 97 88 Respiratory Rate 22 H 20 H 25 H Respiratory Effort Respiratory Pattern Blood Pressure 93/58 L 87/51 L 99/63 Blood Pressure Mean 69 63 75 Pulse Ox 92 97 95 Oxygen Delivery Method Room Air Room Air 06/25/24 12:58 06/25/24 14:00 06/25/24 14:00 Temperature 98.6 F 97.6 F L Temperature Source Axillary Oral Pulse Rate 89 85 Respiratory Rate 19 H 18 Respiratory Effort Respiratory Pattern Blood Pressure 97/57 L 94/59 L Blood Pressure Mean 70 70 Pulse Ox 95 95 Oxygen Delivery Method Room Air Room Air Room Air 06/25/24 15:30 06/25/24 17:39 Temperature 97.6 F L 97.9 F Temperature Source Oral Axillary Pulse Rate 85 68 Respiratory Rate 18 16 Respiratory Effort Respiratory Pattern Blood Pressure 94/59 L 100/67 Blood Pressure Mean 70 78 Pulse Ox 95 97 Oxygen Delivery Method Room Air Room Air Weight Weight: 87.4 kg Body Mass Index (BMI) 28.4 Physical Exam Narrative Left knee incision is well intact with noe. Left knee motion is 3-95 degrees. Left knee has small effusion. Mild warmth. Mild redness consistent with his recent knee surgery. No significant tenderness about the knee. He is easily able to do a straight leg raise against gravity. He seems very comfortable moving his knee throughout a range of motion. No hip pain with motion. No calf pain or swelling. Negative Homans' sign. Legs are neurovascular intact. Vital signs and laboratory work reviewed Case discussed with his admitting physician as well as his nursing staff and family present at the bedside Lab / Micro Data 06/25/24 09:50 06/25/24 09:50 Labs: Laboratory Results - last 24 hr 06/25/24 09:50: WBC 10.5, RBC 4.04 L, Hgb 11.7 L, Hct 35.0 L, MCV 86.6, MCH 29.0, MCHC 33.4, RDW Std Deviation 49.1 H, RDW Coeff of Deb 15.5 H, Plt Count 322, MPV 9.4, Immature Gran % (Auto) 1.700 H, Neut % (Auto) 91.4 H, Lymph % (Auto) 4.0 L, [place] % (Auto) 2.4, Eos % (Auto) 0.3, Baso % (Auto) 0.2, Absolute Neuts (auto) 9.6 H, Absolute Lymphs (auto) 0.42 L, Nucleated RBC % 0, ESR 59 H, PT 16.5 H, INR 1.3, APTT 32.0, Sodium 133, Potassium 3.6, Chloride 102, Carbon Dioxide 21.4, Anion Gap 10, BUN 19, Creatinine 0.98, Estim Creat Clear Calc 64.08, Est GFR (MDRD) Non-Af 76, BUN/Creatinine Ratio 19.0, Glucose 143 H, Lactic Acid 1.5, Calcium 8.3, Procalcitonin 7.48 H 06/25/24 10:54: Urine Color Yellow, Urine Clarity Sl. Cloudy, Urine pH 5.0, Ur Specific [place] 1.015, Urine Protein 30 H, Urine Glucose (UA) Normal, Urine Ketones 5 H, Urine Occult Blood 25 H, Urine Nitrite Positive H, Urine Bilirubin Negative, Urine Urobilinogen 1 H, Ur Leukocyte Esterase 500 H, Urine RBC 0-5 SEEN, Urine WBC 10-25 SEEN, Ur Squamous Epith Cells 0 SEEN, Urine Bacteria 3+, Urine Mucus 0 SEEN Micro: Microbiology 06/25/24 09:49 Mucosa - Nose SARS-CoV-2, Influenza & RSV (PCR) - Final Imaging Radiology Impression Chest CTA 06/25/24 09:44 IMPRESSION: 1. No evidence of pulmonary embolism. 2. Hiatal hernia again seen. 3. Bibasilar and dependent atelectasis Reading Location: [address] Assessment & Plan Assessment/Plan (1) Total knee replacement status: QUALIFIERS: Laterality: left Qualified Code(s): Z96.652 - Presence of left artificial knee joint PLAN: Plan Patient is status post left total knee replacement. Based on his current history and physical exam as well as laboratory studies I do not think he has an infected left knee. That was also the opinion of the admitting physician I discussed the case with earlier today. Patient understands the increased risk of getting any infection with his history of urinary retention, catheterization, probable current urinary tract infection with possible sepsis. He will continue on IV antibiotics. Continue on Xarelto for DVT prevention. We discussed indications for knee aspiration. Based on his current exam history and physical again I do not feel that this would be a jarrett decision to aspirate the knee. I explained knee aspiration can increase the risk of postoperative knee infection. If patient develops any increasing knee pain swelling or increasing stiffness he should let us know for reevaluation. Otherwise he should follow-up in the office next week as scheduled for evaluation and staple removal. He understands and agrees with our treatment plan. Patient and nursing staff are aware to notify me if there is increasing concerns about his left knee. CBC will be followed. ESR and CRP have been ordered and will be followed as well.
[2024-06-25] MEDS: Atorvastatin Calcium 20 MG Tablet PO (21:58)
[2024-06-26] VITALS (7 sets, daily range): BP systolic 112–150; BP diastolic 60–74; PULSE 59–72; RESP 16–18; TEMP 36.1–36.9; O2SAT 95–100
[2024-06-26] MEDS: 0.9% Normal Saline (1000mL) 1,000 ML 100 ML IV ×2 (01:02→11:37)
[2024-06-26 05:59] LABS: Absolute Lymphocyte Count 1.07 X10^3/uL (0.83-4.51); Absolute Neutrophil Count 8.3 X10^3/uL (2.0-7.7); Basophil# 0.03 X10^3/uL; Basophil% 0.3 % (0-1); Eosinophil# 0.06 X10^3/uL; Eosinophils% 0.6 % (0-5); Hematocrit 31.3 % (40-54); Hemoglobin 10.4 g/dL (13.0-16.5); Lymphocyte # 1.07 X10^3/ul (0.83-4.51); Lymphocyte % 10.4 % (19-41); Mean Corp Hgb Conc 33.2 g/dL (32-36); Mean Corpuscular Hgb 28.5 pg (27.0-32.0); Mean Corpuscular Volume 85.8 fL (80-94); Mean Platelet Vol. 9.6 fl (6.2-12.0); Monocyte# 0.76 X10^3/uL; Monocyte% 7.4 % (0-10); NRBC Flagged by Analyzer 0 % (0-5); Neutrophil # 8.28 X10^3/uL (2.7-7.7); Neutrophil % 80.4 % (47-70); Platelet Count 291 K/mm3 (150-450); RBC Distribution Width SD 49.8 fl (35.1-43.9); Red Blood Count 3.65 M/mm3 (4.6-6.2); White Blood Count 10.3 K/mm3 (4.4-11.0)
[2024-06-26 06:17] LABS: Anion Gap 9 (5-15); BUN 14 mg/dL (4-19); BUN/Creat Ratio 18.3 RATIO (10-20); Calcium,Total 7.6 mg/dL (7.6-11.0); Chloride 107 mmol/L (98-108); Creatinine, Serum 0.77 mg/dL (0.70-1.20); EST Glomerular Filtration Rate 89 (>60); Estimated Creatinine Clearance 76.57 ml/min (50-250); Glucose 111 mg/dL (70-99); Potassium 3.8 mmol/L (3.3-5.1); Sodium Level 135 mmol/L (133-145)
[2024-06-26] MEDS: Rivaroxaban 10 MG Tablet PO (08:35)
[2024-06-26] MEDS: Ceftriaxone 1 GM/50 ML BAG IV (08:36)
--- NOTE | 2024-06-26 10:36 | PN.HOSP_ITS ---
Subjective Subjective Feels much better today, blood pressure is much more stable, left knee does not appear significantly swollen or erythematous. Unfortunately blood cultures are coming back positive with gram-negative delmi so he was broadened from Rocephin to Zosyn Objective Data Objective Data Vital Signs: Vital Signs Temp Pulse Resp BP Pulse Ox O2 Del Method 98.5 F 71 16 116/74 95 Room Air 06/26/24 08:32 06/26/24 08:32 06/26/24 08:32 06/26/24 08:32 06/26/24 08:32 06/26/24 09:03 Oxygen Delivery Method Room Air Weight: 192 lb 10.944 oz Body Mass Index (BMI) 28.4 Intake & Output: Intake and Output for Last 24 Hours 06/25/24 06/26/24 06/27/24 03:59 03:59 03:59 Intake Total 4975 / 4975 450 / 450 Balance 4975 / 4975 450 / 450 Lab / Micro Data 06/26/24 05:18 06/26/24 05:18 Labs: Laboratory Results - last 24 hr 06/25/24 09:50: ESR 59 H, Sodium 133, Potassium 3.6, Chloride 102, Carbon Dioxide 21.4, Anion Gap 10, BUN 19, Creatinine 0.98, Estim Creat Clear Calc 64.08, Est GFR (MDRD) Non-Af 76, BUN/Creatinine Ratio 19.0, Glucose 143 H, Lactic Acid 1.5, Calcium 8.3, C-React Prot Ext Range 101.00 H, Procalcitonin 7.48 H 06/25/24 10:54: Urine Color Yellow, Urine Clarity Sl. Cloudy, Urine pH 5.0, Ur Specific [place] 1.015, Urine Protein 30 H, Urine Glucose (UA) Normal, Urine Ketones 5 H, Urine Occult Blood 25 H, Urine Nitrite Positive H, Urine Bilirubin Negative, Urine Urobilinogen 1 H, Ur Leukocyte Esterase 500 H, Urine RBC 0-5 SEEN, Urine WBC 10-25 SEEN, Ur Squamous Epith Cells 0 SEEN, Urine Bacteria 3+, Urine Mucus 0 SEEN 06/26/24 05:18: WBC 10.3, RBC 3.65 L, Hgb 10.4 L, Hct 31.3 L, MCV 85.8, MCH 28.5, MCHC 33.2, RDW Std Deviation 49.8 H, RDW Coeff of Deb 16.0 H, Plt Count 291, MPV 9.6, Immature Gran % (Auto) 0.900, Neut % (Auto) 80.4 H, Lymph % (Auto) 10.4 L, [place] % (Auto) 7.4, Eos % (Auto) 0.6, Baso % (Auto) 0.3, Absolute Neuts (auto) 8.3 H, Absolute Lymphs (auto) 1.07, Nucleated RBC % 0, Sodium 135, Potassium 3.8, Chloride 107, Carbon Dioxide 20.0 L, Anion Gap 9, BUN 14, Creatinine 0.77, Estim Creat Clear Calc 76.57, Est GFR (MDRD) Non-Af 89, BUN/Creatinine Ratio 18.3, Glucose 111 H, Calcium 7.6 Micro: Microbiology 06/25/24 10:00 Blood Culture (Wb) - Left Hand Blood Culture - Preliminary 06/25/24 09:50 Blood Culture (Wb) - Anticubital Left Blood Culture - Preliminary 06/25/24 09:49 Mucosa - Nose SARS-CoV-2, Influenza & RSV (PCR) - Final Radiography Diagnostic Testing: Radiology Impression Chest CTA 06/25/24 09:44 IMPRESSION: 1. No evidence of pulmonary embolism. 2. Hiatal hernia again seen. 3. Bibasilar and dependent atelectasis Reading Location: [address] Physical Exam Narrative General: Alert, Oriented x3, Cooperative, No apparent distress HEENT: Atraumatic, PERRLA, EOMI, Normocephalic Oral: Dry mucosa Neck: Supple, No JVD Lungs: Diminished, Normal air movement, No rhonchi, No wheeze, No rales Cardiovascular: Regular rate, Regular Rhythm, Normal S1, Normal S2, No murmurs Abdomen: Soft, Non Tender, Non-Distended, No Hepato-splenomegaly Extremities: Edema around his left knee from surgery, Capillary Refill Less than 3 Seconds Skin: Left knee noe with mild katharine-incisional erythema Musculoskeletal: Mild tenderness to palpation of his left knee postsurgery Neurological: No focal neurological deficits, Motor Exam 5/5 strength throughout, Sensory exam intact to light touch and pain Psych/Mental Status: Normal Affect, Appropriate Assessment & Plan Assessment/Plan (1) UTI (urinary tract infection): PLAN: Plan 1. UTI without sepsis ? Urine culture and blood cultures with gram-negative delmi ? He does not have a leukocytosis ?Continue with Zosyn while awaiting cultures and sensitivities ? Will monitor his knee closely and I did notify his orthopedic surgeon that he was here in the hospital, he did have a Pritchett for a few days which is likely the source of his infection ? Will continue with his postoperative prophylactic dose of Xarelto 2. Chronic CHF unknown type/essential HTN/HLD ? Will be gentle with IV fluids, hold his Lasix ? Given his blood pressure drop in the ER of the labetalol will hold his other blood pressure medications ? Will monitor and make adjustments as necessary 3. BPH with obstruction ? He recently had his Pritchett removed due to urinary retention ? Will hold his Flomax today given his lower blood pressures but can potentially restart it tomorrow DVT: Prophylactic Xarelto dosing from his recent knee surgery Charges/Coding Visit Charges Inpatient E&M: 54402 Subs Hosp L2
--- NOTE | 2024-06-26 12:07 | CASEMGMT ---
RN BRANDYN Assessment Face to Face with patient for initial transition planning/care coordination assessment. RN BRANDYN introduced self and role at [facility], pt voices understanding. Pt is A&Ox4 and is resting comfortably in bed and is calm. Pt daughter (Jackelin) at bedside. Care providers, pharmacy, and demographics verified. Admitting dx: UTI LACE Strata: 2 PCP: Blake Prieto Specialists: Denies Preferred Pharmacy: [facility] Insurance: Pt is listed as SP. However, pt states that he has insurance through his [employer] and denies needs. This ESEQUIEL AHUMADA offered to have the pt personal financial counselor see him but the pt refused the need. Prescription Benefit: Yes LNOK: [place] (), [place] (GD), Jackelin (Daughter). Pt also has a son and another daughter Living Arrangements: Pt lives with his in a single story home with 2 steps to enter. Pt states that his son lives on the same farm ADLs/IADLs: States independent prior to his knee surgery last week. Pt states that his family provides sufficient support Transportation: Self, family. Denies concerns DME: FWW, extended tub bench, grab bars. HHC/SNF: Pt states that he is active with an independent home physical therapist. Pt states that the therapist is not through a company or agency. Pt denies SNF Pt?s goal: Return home Plan: Home with family support, continue private home PT, and follow medication/Rx costs due to no insurance. Pt states that he has plenty of family support through his son and 2 daughters that live close. Pt states that he plans to continue the private home care 1-2x/week. Pt denies needs or concerns with this. Pt states that he feels safe with this plan and denies further needs at this time. Report given to CHIEF OF STAFF DOCTOR CM. CM to follow. Cale Richardson RN, CM
[2024-06-26] MEDS: Piperacil/Tazobactam 3.375 GM in 0.9% Normal Saline (50mL MB+) 50 ML IV ×2 (13:33→22:04)
--- NOTE | 2024-06-26 13:49 | CHAPLAIN ---
Type of Pastoral Visit _x__ Initial Visit ___ Follow-up Visit ___ On-call Visit ___ General Patient Visit ___ Spiritual Assessment ___ Family Conference ___ Bereavement ___ Rapid Response ___ Code Blue ___ Other (describe below) Pastoral Care Referral From _x__ Patient ___ Family ___ Nurse ___ Physician ___ Veterinary Virologist ___ Chief Growth Officer ___ Other (describe below) Sacrament/Intervention _x__ Active listening ___ Anointing ___ Protestant ___ Bereavement ___ Communion _x__ Jojo exploration ___ _x__ Life review _x__ Prayer ___ Reconciliation ___ Sacrament of Sick _x__ Supportive presence ___ Wedding ___ Other (describe below) Pastoral Comments patient and daughter are in the room; pt is welcoming and a bit slow to respond to questions but then willing to add more to life review and his current situation; 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
[2024-06-26] MEDS: MELATONIN 3 MG TABLET 6 MG PO (22:07)
[2024-06-26] MEDS: Acetaminophen 500 MG Tablet 1000 MG PO (22:08)
[2024-06-26] MEDS: Atorvastatin Calcium 20 MG Tablet PO (22:08)
[2024-06-27] MEDS: 0.9% Normal Saline (1000mL) 1,000 ML 100 ML IV (02:26)
[2024-06-27 03:00] VITALS: PULSE 67
[2024-06-27] MEDS: Piperacil/Tazobactam 3.375 GM in 0.9% Normal Saline (50mL MB+) 50 ML IV (05:20)
[2024-06-27 05:26] VITALS: BP 117/75; PULSE 55; RESP 14; TEMP 35.7; O2SAT 99
[2024-06-27 06:39] LABS: Absolute Lymphocyte Count 1.19 X10^3/uL (0.83-4.51); Absolute Neutrophil Count 4.5 X10^3/uL (2.0-7.7); Basophil# 0.04 X10^3/uL; Basophil% 0.6 % (0-1); Eosinophil# 0.27 X10^3/uL; Hematocrit 31.6 % (40-54); Hemoglobin 10.6 g/dL (13.0-16.5); Lymphocyte # 1.19 X10^3/ul (0.83-4.51); Lymphocyte % 17.8 % (19-41); Mean Corp Hgb Conc 33.5 g/dL (32-36); Mean Corpuscular Hgb 28.8 pg (27.0-32.0); Mean Corpuscular Volume 85.9 fL (80-94); Mean Platelet Vol. 9.4 fl (6.2-12.0); Monocyte# 0.61 X10^3/uL; Monocyte% 9.1 % (0-10); NRBC Flagged by Analyzer 0 % (0-5); Neutrophil # 4.54 X10^3/uL (2.7-7.7); Neutrophil % 68.2 % (47-70); Platelet Count 289 K/mm3 (150-450); RBC Distribution Width SD 50.4 fl (35.1-43.9); Red Blood Count 3.68 M/mm3 (4.6-6.2); White Blood Count 6.7 K/mm3 (4.4-11.0)
[2024-06-27 07:39] LABS: Anion Gap 8 (5-15); BUN 13 mg/dL (4-19); Calcium,Total 7.6 mg/dL (7.6-11.0); Carbon Dioxide 19.9 mmol/L (21.0-32.0); Chloride 108 mmol/L (98-108); Creatinine, Serum 0.78 mg/dL (0.70-1.20); EST Glomerular Filtration Rate 88 (>60); Estimated Creatinine Clearance 76.57 ml/min (50-250); Glucose 106 mg/dL (70-99); Potassium 3.5 mmol/L (3.3-5.1); Sodium Level 136 mmol/L (133-145)
[2024-06-27] MEDS: Rivaroxaban 10 MG Tablet PO (09:51)
[2024-06-27 09:52] VITALS: BP 124/64; PULSE 53; RESP 16; TEMP 35.9; O2SAT 99
--- NOTE | 2024-06-27 10:30 | DCINST_ITS ---
Discharge Instructions Diet Discharge Diet: Low fat / Low cholesterol DC O2, CPAP, BIPAP needs Home O2 Discharge instructions: No Dressing / Incision Discharge Activity: Return to Normal Activity Dressing / Incision Call your doctor if your incision/area has: Continuous Slow Oozing, Increased Pain/ Swelling, Increased Redness, Foul Smelling Discharge and Swelling at the incision site Call your doctor if you observe: Fever of 101 or Higher, Shortness of breath, Dizziness, Fainting spells, Swelling in the ankles, Chest pain and Increased palpitations (irregular heartbeat) Follow Up Care Test Results: Test results from this visit will be discussed in further detail at your follow- up appointment, if applicable. Discharge Plan Admission Admit Date/Time: 06/25/24 12:57 Attending Provider: Tenzin Driver Primary Care Provider: Blake Prieto Discharge Orders/Prescriptions Prescriptions: New ciprofloxacin HCl 500 mg tablet 500 mg PO BID 10 Days Qty: 20 0RF Continued furosemide [Lasix] 40 mg tablet 40 mg PO QAM isosorbide mononitrate 60 mg tablet extended release 24 hr 60 mg PO QAM simvastatin [Zocor] 40 mg Tablet 40 mg PO DAILY atenolol 25 mg tablet 12.5 mg PO DAILY Rx Instructions: 1/2 pill daily tamsulosin [Flomax] 0.4 mg capsule 0.4 mg PO DAILY potassium chloride 20 mEq tablet extended release 20 meq PO DAILY rivaroxaban 10 mg tablet 10 mg PO DAILY Referrals / Follow Up: Blake Prieto DO [Primary Care Provider] - Within 1 Week Rogelio Richardson MD [Med Staff - Active Staff] - Within 1 Week (As previously scheduled) Disposition Disposition (needs filled in before D/C Order can be placed): Home, Self Care
[2024-06-27 10:33] VITALS: BP 124/64; PULSE 53; RESP 16; TEMP 35.9; O2SAT 99
--- NOTE | 2024-06-27 11:15 | CASEMGMT ---
ESEQUIEL AHUMADA NOTE: Discharge order is in. ESEQUIEL AHUMADA to room. Pt just getting back into bed w/assistance of CATECHIST. Pt aware he is discharging home and denies having any concerns w/going him. Either his son or daughter will be taking him home. He plans to continue to work w/independent OP PT for therapy. He is aware Rx for atb has been sent to [facility]'s pharmacy and he states they can pick that up today. He is aware to f/u with PCP in 1 week and he has an appt w/Dr Rogelio Richardson on Sunday that he will go to. He denies having any further discharge needs or concerns. Kel BSN ESEQUIEL AHUMADA
--- NOTE | 2024-06-27 13:18 | DS.PCM_ITS ---
Providers Date of Admission: 06/25/24 Primary Care Physician: Dr. Blake Prieto DO Reason For Visit: UTI Diagnosis Discharge Diagnosis (1) UTI (urinary tract infection): Status: Acute Code(s): N39.0 - Urinary tract infection, site not specified Medications at Discharge Home Medications simvastatin 40 mg tablet (Zocor) 40 mg PO DAILY cholesterol 11/04/20 atenolol 25 mg tablet 12.5 mg PO DAILY blood pressure 02/14/24 furosemide 40 mg tablet (Lasix) 40 mg PO QAM diuretic 02/14/24 isosorbide mononitrate 60 mg tablet,extended release 24 hr 60 mg PO QAM heart 02/14/24 potassium chloride 20 mEq tablet,extended release 20 meq PO DAILY supplement 06/25/24 rivaroxaban 10 mg tablet 10 mg PO DAILY blood pressure 06/25/24 tamsulosin 0.4 mg capsule (Flomax) 0.4 mg PO DAILY prostate 06/25/24 ciprofloxacin HCl 500 mg tablet 500 mg PO BID 10 days #20 tabs 06/27/24 Hospital Course Operations None Procedures None Summary of Care Provided Minutes Spent on Discharge: 34 Hospital Course: Per HPI: BURAK GILES, is a 84 M who presents to the hospital with some confusion at home and found to have a UTI. No signs of sepsis at this time with endorgan damage though family reports that he had a temperature to 103 at home while here he has been afebrile. No leukocytosis but urine is positive nitrites with 500 leukocyte esterase and 3+ bacteria. He states that he had difficulty urinating after his knee surgery about a week ago so his primary care doctor inserted a Pritchett in the office and took it out on Sunday. Since that time he had felt well until this morning when his granddaughter, who is a nurse, saw him and felt that he was a lot more confused and so request that he come to the hospital. He did have a slight episode of hypotension this was secondary to labetalol given in the ER in the setting of his infection. He still has noe in his left knee from surgery which does not appear significantly infected, there is some minor redness around the staple line and his orthopedic surgeon has been notified that he is here in the hospital. Since fluids in the ER and antibiotics he states that he is feeling much better and his son who is at bedside also says that he looks better today. Hospital Course: 1. Klebsiella UTI leading to a Klebsiella bacteremia without sepsis?84-year-old male recently had left knee surgery and he is due to get his noe removed next week at the orthopedic surgeons office, went to his primary care doctor for her urinary retention and had a Pritchett placed over the weekend which was removed on Sunday. On Sunday morning he was little confused and altered so family brought him in the hospital. He was found to have a UTI and then unfortunate blood cultures did come back positive for the same organism that was in his urine. He is not having any more urinary retention and he was placed on Zosyn in the hospital and then discharged on p.o. ciprofloxacin 500 mg twice daily for 10 days. He will follow-up with the orthopedic surgeon next week for evaluation of his incision and to have the noe removed. I discussed with him the possibility for discharge today and he expressed understanding of the risks and benefits of going home and he would like to go home today. We discussed reasons to return to the hospital including increasing left knee pain as well as increasing redness and erythema. I do recommend he follow-up with his PCP in 3 to 5 days for outpatient monitoring of his infection. 2. 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 His home medications were continued where appropriate Physical Exam Narrative General: Alert, Oriented x3, Cooperative, No apparent distress HEENT: Atraumatic, PERRLA, EOMI, Normocephalic Oral: Dry mucosa Neck: Supple, No JVD Lungs: Diminished, Normal air movement, No rhonchi, No wheeze, No rales Cardiovascular: Regular rate, Regular Rhythm, Normal S1, Normal S2, No murmurs Abdomen: Soft, Non Tender, Non-Distended, No Hepato-splenomegaly Extremities: Edema around his left knee from surgery, Capillary Refill Less than 3 Seconds Skin: Left knee noe with mild katharine-incisional erythema Musculoskeletal: Mild tenderness to palpation of his left knee postsurgery Neurological: No focal neurological deficits, Motor Exam 5/5 strength throughout, Sensory exam intact to light touch and pain Psych/Mental Status: Normal Affect, Appropriate Weight / BMI Weight Weight: 192 lb 10.944 oz Body Mass Index (BMI) 28.4 ABG / Lab / Microbiology Data 06/27/24 06:24 06/27/24 06:24 Laboratory: Laboratory Results - last 24 hr 06/27/24 06:24: WBC 6.7, RBC 3.68 L, Hgb 10.6 L, Hct 31.6 L, MCV 85.9, MCH 28.8, MCHC 33.5, RDW Std Deviation 50.4 H, RDW Coeff of Deb 16.0 H, Plt Count 289, MPV 9.4, Immature Gran % (Auto) 0.300, Neut % (Auto) 68.2, Lymph % (Auto) 17.8 L, Morton % (Auto) 9.1, Eos % (Auto) 4.0, Baso % (Auto) 0.6, Absolute Neuts (auto) 4.5, Absolute Lymphs (auto) 1.19, Nucleated RBC % 0, Sodium 136, Potassium 3.5, Chloride 108, Carbon Dioxide 19.9 L, Anion Gap 8, BUN 13, Creatinine 0.78, Estim Creat Clear Calc 76.57, Est GFR (MDRD) Non-Af 88, BUN/Creatinine Ratio 16.0, G lucose 106 H, Calcium 7.6 Microbiology: Microbiology 06/25/24 10:00 Blood Culture (Wb) - Left Hand Blood Culture - Final GNR lactose chief innovation officer 06/25/24 09:50 Blood Culture (Wb) - Anticubital Left Blood Culture - Final Klebsiella pneumoniae sp pneum 06/25/24 10:54 Urine, Random Urine Culture - Final Klebsiella pneumoniae sp pneum 06/25/24 09:49 Mucosa - Nose SARS-CoV-2, Influenza & RSV (PCR) - Final D/C Instructions Discharge Diet: Low fat / Low cholesterol Call your doctor if your incision/area has: Continuous Slow Oozing, Increased Pain/ Swelling, Increased Redness, Foul Smelling Discharge and Swelling at the incision site Call your doctor if you observe: Fever of 101 or Higher, Shortness of breath, Dizziness, Fainting spells, Swelling in the ankles, Chest pain and Increased palpitations (irregular heartbeat) DC O2, CPAP, BIPAP Needs Home O2 Discharge instructions: No Meaningful Use Info Meaningful Use Meaningful Use Diagnoses (Choose all that apply): None applicable Ischemic Stroke Statin Dosing Therapy Reference: STATIN DOSE THERAPY REFERENCE: * Patients > 75 years receive moderate or high dose statin therapy. * Patients 75 years or YOUNGER should receive HIGH intensity statin dose unless contraindicated. You will be required to document reason for non-treatment if statin daily dose does not meet guidelines. HIGH DOSE STATIN THERAPY DAILY Atorvastatin > than or = to 40 mg Rosuvastatin > than or = to 20 mg Amlodipine + Atorvastatin > than or = to 2.5/40 mg Ezetimibe + Simvastatin 10/80 mg Simvastatin 80mg Discharge Plan Admission Admit Date/Time: 06/25/24 12:57 Attending Provider: Tenzin Driver Primary Care Provider: Blake Prieto Discharge Orders/Prescriptions Prescriptions: New ciprofloxacin HCl 500 mg tablet 500 mg PO BID 10 Days Qty: 20 0RF Continued furosemide [Lasix] 40 mg tablet 40 mg PO QAM isosorbide mononitrate 60 mg tablet extended release 24 hr 60 mg PO QAM simvastatin [Zocor] 40 mg Tablet 40 mg PO DAILY atenolol 25 mg tablet 12.5 mg PO DAILY Rx Instructions: 1/2 pill daily tamsulosin [Flomax] 0.4 mg capsule 0.4 mg PO DAILY potassium chloride 20 mEq tablet extended release 20 meq PO DAILY rivaroxaban 10 mg tablet 10 mg PO DAILY Referrals / Follow Up: Blake Prieto DO [Primary Care Provider] - Within 1 Week Rogelio Richardson MD [Med Staff - Active Staff] - Within 1 Week (As previously scheduled) Disposition Disposition (needs filled in before D/C Order can be placed): Home, Self Care Charges/Coding Visit Charges Inpatient E&M: 05521 Disch Hosp >30min
== END 2024-06-27 12:55 | disposition home or self-care (01) | DRG 690 ==
LOC: ED 12:58 → PCU 13:13
PROVIDERS: Orthopaedic Surgery; Admitting Provider Family Medicine; Emergency Provider Emergency Medicine; PCP Family Medicine; Visit Provider Family Medicine
DX: N39.0 Urinary tract infection, site not specified (principal); B96.89 Other specified bacterial agents as the cause of diseases classified elsewhere; I50.9 Heart failure, unspecified; I11.0 Hypertensive heart disease with heart failure; E78.5 Hyperlipidemia, unspecified; I25.10 Atherosclerotic heart disease of native coronary artery without angina pectoris; I95.2 Hypotension due to drugs; M17.12 Unilateral primary osteoarthritis, left knee; N13.8 Other obstructive and reflux uropathy; Z79.01 Long term (current) use of anticoagulants; Z95.5 Presence of coronary angioplasty implant and graft; N40.1 Benign prostatic hyperplasia with lower urinary tract symptoms; T44.8X5A Adverse effect of centrally-acting and adrenergic-neuron-blocking agents, initial encounter; Z79.02 Long term (current) use of antithrombotics/antiplatelets; Z79.899 Other long term (current) drug therapy
CPT/HCPCS: 36415; 71275; 80048; 81001; 83605; 84145; 85025; 85610; 85652; 85730; 86140; 87040; 87077; 87086; 87088; 87186; 87631; 97110; 97116; 97162; 99285; Q9967; A4216